=== PATIENT | female | born 1930 | race Caucasian/White ===

== ENCOUNTER 2019-07-07 19:09 | Inpatient (IN) | payer MEDICARE, OTHER ==
[~2019-07-07] VITALS: Ht 144.8 cm; Wt 38.5 kg
[~2019-07-07 19:09] MED LIST: ALLO300T PO; CYAN-27 PO; GLIP10TA13 PO; LOVA40TA2 PO; OMEP-110 PO; PIOG45TA4 PO
[2019-07-07] MEDS ORDERED: SODIUM CHLORIDE 0.9% 1,000 ML IV ONE (19:46)
--- NOTE | 2019-07-07 19:53 | NUR ---
Assumed care of patient. Per family, patient has been mostly sleeping x2 days. Decreased appetite. Family reports confusion. A&Ox4 in ED, but lethargic and weak. Place don NIBP, pulse ox and surveillance system monitor. Will continue to monitor.
[2019-07-07] MEDS ORDERED: SODIUM CHLORIDE FLUSH 10ML SYR IVF ONE ×2 (20:00→21:30)
[2019-07-07 20:32] LABS: BASOPHILS # (AUTO) 0.01 x10^3/uL (0-0.1); BASOPHILS % (AUTO) 0 % (0-1); EOSINOPHILS % (AUTO) 0 % (1-7); LYMPHOCYTES # (AUTO) 0.53 x10^3/uL (1-3.4); LYMPHOCYTES % (AUTO) 4 % (22-44); MD NO; MEAN CORPUSCULAR HEMOGLOBIN 34.3 pg (27.0-34.8); MEAN CORPUSCULAR HGB CONC 32.1 g/dL (32.4-35.8); MEAN CORPUSCULAR VOLUME 106.6 fL (80-100); MEAN PLATELET VOLUME 7.9 fL (7.4-10.4); MONOCYTES # (AUTO) 0.61 x10^3/uL (0.2-0.8); MONOCYTES % (AUTO) 5 % (2-9); NEUTROPHILS # (AUTO) 12.18 x10^3/uL (1.8-6.8); NEUTROPHILS % (AUTO) 91 % (42-75); PLATELET COUNT 200 x10^3/uL (130-400); RED BLOOD COUNT 2.58 x10^6/uL (3.82-5.3); RED CELL DISTRIBUTION WIDTH 17.3 % (9.6-15.2)
[2019-07-07 20:41] LABS: ALANINE AMINOTRANSFERASE 18 U/L (12-78); ALBUMIN 3.3 g/dL (3.4-5.0); ANION GAP 7 mmol/L (5-15); CALCIUM 9.6 mg/dL (8.5-10.1); CHLORIDE 116 mmol/L (98-107); CREATININE 2.17 mg/dL (0.55-1.02)
--- NOTE | 2019-07-07 20:41 | NUR ---
UA sent tp lab. Patient cleaned and repositioned for comfort.
[2019-07-07 20:46] LABS: ALKALINE PHOSPHATASE 63 U/L (45-117); BILIRUBIN,TOTAL 0.3 mg/dL (0.2-1.0); T4 (THYROXINE) 7.9 mcg/dL (4.8-13.9); TOTAL PROTEIN 7.4 g/dL (6.4-8.2); TROPONIN I 0.076 ng/mL (0.000-0.045)
[2019-07-07 21:02] LABS: MICROSCOPIC AUTO
[2019-07-07 21:03] LABS: CULTURE INDICATED? YES
[2019-07-07] MEDS ORDERED: INSULIN SINGLE DOSE, ER SQ-INSULIN ONE (21:10)
[2019-07-07] MEDS ORDERED: CALCIUM GLUCONATE 4.6 MEQ/10 ML ONE (21:10)
[2019-07-07] MEDS ORDERED: CHOL100015 PO (21:18)
[2019-07-07] MEDS ORDERED: LISI40TA PO (21:18)
[2019-07-07] MEDS ORDERED: FERR324T5 PO (21:18)
[2019-07-07] MEDS ORDERED: GLIP10TA13 PO (21:18)
[2019-07-07] MEDS ORDERED: ASPI-496 PO (21:18)
[2019-07-07] MEDS ORDERED: CALCIUM GLUCONATE 4.6 MEQ/10 ML IVPush ONE (21:30)
[2019-07-07] MEDS ORDERED: INSULIN REGULAR 100 UNITS/ML, 3ML VIAL IVPush ONE (21:30)
[2019-07-07] MEDS ORDERED: DEXTROSE 50%, 50ML SYRINGE IVPush ONE (21:30)
[2019-07-07] MEDS ORDERED: CEFTRIAXONE PMX 1GM/50ML 50 ML ONE (21:34)
--- NOTE | 2019-07-07 21:40 | NUR ---
Lab at bedside drawing blood cultures.
[2019-07-07] MEDS ORDERED: CEFTRIAXONE PMX 1GM/50ML 50 ML IVPB ONE (22:00)
[2019-07-07] MEDS ORDERED: SODIUM CHLORIDE FLUSH 10ML SYR IVF PRN (22:30)
[2019-07-07 23:02] VITALS: BP 137/67
[2019-07-07] MEDS ORDERED: DOCUSATE 100 MG CAPSULE PO PRN (23:30)
[2019-07-07] MEDS ORDERED: ACETAMINOPHEN 325 MG TABLET PO PRN (23:30)
[2019-07-07] MEDS ORDERED: DOXYCYCLINE 100 MG in DEXTROSE 5% 250 ML IV SCH (23:30)
[2019-07-07] MEDS ORDERED: HEPARIN 5,000 UNITS/ML, 1ML SQ SCH (23:30)
[2019-07-07] MEDS ORDERED: ONDANSETRON ODT 4 MG PO PRN (23:30)
[2019-07-08] MEDS ORDERED: SODIUM CHLORIDE 0.9% 1,000ML IVBOLUS ONE
[2019-07-08] MEDS ORDERED: SODIUM POLYSTYRENE SULFONATE ORAL SUSP PO ONE
[2019-07-08 00:20] LABS: CHLORIDE,URINE RANDOM 76 mmol/L; POTASSIUM,URINE RANDOM 30 mmol/L; SODIUM,URINE RANDOM 77 mmol/L
[2019-07-08] MEDS ORDERED: HEPARIN 5,000 UNITS/ML, 1ML ONE (00:46)
[2019-07-08 01:03] VITALS: BP 122/69
[2019-07-08 01:13] LABS: BASOPHILS # (AUTO) 0.02 x10^3/uL (0-0.1); BASOPHILS % (AUTO) 0 % (0-1); EOSINOPHILS # (AUTO) 0.02 x10^3/uL (0-0.4); EOSINOPHILS % (AUTO) 0 % (1-7); LYMPHOCYTES # (AUTO) 1.13 x10^3/uL (1-3.4); LYMPHOCYTES % (AUTO) 9 % (22-44); MD NO; MEAN CORPUSCULAR HEMOGLOBIN 34.2 pg (27.0-34.8); MEAN CORPUSCULAR HGB CONC 32.1 g/dL (32.4-35.8); MEAN CORPUSCULAR VOLUME 106.4 fL (80-100); MEAN PLATELET VOLUME 7.7 fL (7.4-10.4); MONOCYTES % (AUTO) 7 % (2-9); NEUTROPHILS # (AUTO) 10.76 x10^3/uL (1.8-6.8); NEUTROPHILS % (AUTO) 84 % (42-75); PLATELET COUNT 194 x10^3/uL (130-400); RED BLOOD COUNT 2.55 x10^6/uL (3.82-5.3); RED CELL DISTRIBUTION WIDTH 16.7 % (9.6-15.2)
[2019-07-08 01:24] LABS: ANION GAP 7 mmol/L (5-15); CHLORIDE 120 mmol/L (98-107); CREATININE 1.93 mg/dL (0.55-1.02)
[2019-07-08 01:28] LABS: TROPONIN I 0.097 ng/mL (0.000-0.045)
[2019-07-08] MEDS: SODIUM CHLORIDE 0.9% 1,000 ML IV SCH ×3 (02:00→16:39)
[2019-07-08 02:04] LABS: FIO2 RA %
[2019-07-08] MEDS ORDERED: SODIUM BICARBONATE 1 MEQ/ML, 50ML VIAL IVPush ONE (02:30)
[2019-07-08 07:02] LABS: BASOPHILS # (AUTO) 0.03 x10^3/uL (0-0.1); BASOPHILS % (AUTO) 0 % (0-1); EOSINOPHILS # (AUTO) 0.08 x10^3/uL (0-0.4); EOSINOPHILS % (AUTO) 1 % (1-7); LYMPHOCYTES % (AUTO) 9 % (22-44); MD NO; MEAN CORPUSCULAR HEMOGLOBIN 33.4 pg (27.0-34.8); MEAN CORPUSCULAR HGB CONC 31.7 g/dL (32.4-35.8); MEAN CORPUSCULAR VOLUME 105.2 fL (80-100); MEAN PLATELET VOLUME 7.7 fL (7.4-10.4); MONOCYTES # (AUTO) 0.73 x10^3/uL (0.2-0.8); MONOCYTES % (AUTO) 6 % (2-9); NEUTROPHILS # (AUTO) 9.64 x10^3/uL (1.8-6.8); NEUTROPHILS % (AUTO) 84 % (42-75); PLATELET COUNT 197 x10^3/uL (130-400); RED BLOOD COUNT 2.42 x10^6/uL (3.82-5.3); RED CELL DISTRIBUTION WIDTH 16.6 % (9.6-15.2)
[2019-07-08 07:14] LABS: ANION GAP 6 mmol/L (5-15); ANION GAP 8 mmol/L (5-15); CALCIUM 9.2 mg/dL (8.5-10.1); CALCIUM 9.3 mg/dL (8.5-10.1); CHLORIDE 122 mmol/L (98-107); CHLORIDE 124 mmol/L (98-107); CREATININE 1.89 mg/dL (0.55-1.02)
[2019-07-08 07:18] LABS: TROPONIN I 0.093 ng/mL (0.000-0.045)
[2019-07-08] MEDS: INSULIN LISPRO 100 UNITS/ML, PEN SQ-INSULIN SCH ×5 (07:21→20:54)
[2019-07-08 07:22] LABS: % IRON SATURATION 17 % (20-55); ALANINE AMINOTRANSFERASE 18 U/L (12-78); ALKALINE PHOSPHATASE 55 U/L (45-117); BILIRUBIN,TOTAL 0.2 mg/dL (0.2-1.0); CREATININE 1.88 mg/dL (0.55-1.02); IRON LEVEL 37 mcg/dL (50-170); TOTAL IRON BINDING CAPACITY 223 mcg/dL (250-450); TOTAL PROTEIN 6.6 g/dL (6.4-8.2); TRANSFERRIN 175 mg/dL (200-360)
[2019-07-08 07:30] VITALS: BP 124/80
[2019-07-08] MEDS ORDERED: CYANOCOBALAMIN 1,000 MCG TABLET PO SCH (09:00)
[2019-07-08 12:47] VITALS: BP 125/63
[2019-07-08 12:50] VITALS: BP 118/67
[2019-07-08 16:31] LABS: ANION GAP 6 mmol/L (5-15); CALCIUM 8.7 mg/dL (8.5-10.1); CHLORIDE 119 mmol/L (98-107); CREATININE 1.75 mg/dL (0.55-1.02)
[2019-07-08 18:45] VITALS: BP 113/58
[2019-07-08] MEDS: LOVASTATIN 40 MG TABLET PO SCH (20:53)
[2019-07-08] MEDS: CEFTRIAXONE PMX 1GM/50ML 50 ML IV SCH (20:54)
[2019-07-09 00:51] VITALS: BP 131/65
[2019-07-09] MEDS: SODIUM CHLORIDE 0.9% 1,000 ML IV SCH (01:24)
[2019-07-09 05:27] LABS: CHLORIDE 121 mmol/L (98-107)
[2019-07-09 05:31] LABS: ANION GAP 7 mmol/L (5-15); CREATININE 1.48 mg/dL (0.55-1.02)
[2019-07-09 06:39] VITALS: BP 145/71
[2019-07-09] MEDS ORDERED: FUROSEMIDE 20 MG/2 ML IV ONE (07:00)
[2019-07-09] MEDS: INSULIN LISPRO 100 UNITS/ML, PEN SQ-INSULIN SCH ×4 (07:00→21:00)
[2019-07-09 13:44] VITALS: BP 132/74
[2019-07-09 18:58] VITALS: BP 124/68
[2019-07-09] MEDS: LOVASTATIN 40 MG TABLET PO SCH (21:12)
[2019-07-09] MEDS: CEFTRIAXONE PMX 1GM/50ML 50 ML IV SCH (21:12)
[2019-07-10 00:32] VITALS: BP 126/77
[2019-07-10 06:35] LABS: ANION GAP 7 mmol/L (5-15); CALCIUM 8.3 mg/dL (8.5-10.1); CHLORIDE 114 mmol/L (98-107); CREATININE 1.44 mg/dL (0.55-1.02)
[2019-07-10] MEDS: HEPARIN 5,000 UNITS/ML, 1ML SQ SCH ×2 (07:12→16:31)
[2019-07-10 07:38] VITALS: BP 133/74
[2019-07-10] MEDS ORDERED: MAGNESIUM SULFATE PMX 2GM/50ML 50 ML IV ONE (08:00)
[2019-07-10] MEDS: INSULIN LISPRO 100 UNITS/ML, PEN SQ-INSULIN SCH ×3 (08:52→16:31)
[2019-07-10] MEDS ORDERED: CEPH-376 PO (10:30)
[2019-07-10] MEDS: CEPHALEXIN 500 MG CAPSULE PO SCH ×2 (11:39→16:30)
[2019-07-10 13:04] VITALS: BP 123/64
== END 2019-07-10 20:00 | disposition home health service (06) | DRG 871 ==
LOC: ED 21:48 → EDIP 22:24 → 4WST 07-08 00:10
PROVIDERS: ADMIT Family Medicine; ATTEND Family Medicine
DX: A41.9 Sepsis, unspecified organism (principal); N17.0 Acute kidney failure with tubular necrosis; N39.0 Urinary tract infection, site not specified; K44.9 Diaphragmatic hernia without obstruction or gangrene; B96.20 Unspecified Escherichia coli [E. coli] as the cause of diseases classified elsewhere; D53.9 Nutritional anemia, unspecified; E11.22 Type 2 diabetes mellitus with diabetic chronic kidney disease; E11.65 Type 2 diabetes mellitus with hyperglycemia; E78.00 Pure hypercholesterolemia, unspecified; E86.0 Dehydration; E87.5 Hyperkalemia; E87.8 Other disorders of electrolyte and fluid balance, not elsewhere classified; F03.90 Unspecified dementia, unspecified severity, without behavioral disturbance, psychotic disturbance, mood disturbance, and anxiety; I12.9 Hypertensive chronic kidney disease with stage 1 through stage 4 chronic kidney disease, or unspecified chronic kidney disease; N18.9 Chronic kidney disease, unspecified; W06.XXXA Fall from bed, initial encounter; Y93.89 Activity, other specified; Y92.89 Other specified places as the place of occurrence of the external cause; Y99.8 Other external cause status; Z87.11 Personal history of peptic ulcer disease
CPT/HCPCS: 36415; 36600; 70450; 71045; 80048; 80053; 81001; 82088; 82140; 82436; 82533; 82550; 82570; 82607; 82728; 82803; 82962; 83036; 83540; 83550; 83605; 83735; 83880; 84133; 84145; 84244; 84300; 84436; 84443; 84466; 84484; 85025; 87040; 87077; 87086; 87186; 93005; 93306; 96374; 96375; 99291; G0378; J0696; J1644; J1815; J0610; J1940; J3475; J7030

== ENCOUNTER 2019-09-08 21:05 | Inpatient (IN) | payer MEDICARE ==
[~2019-09-08] VITALS: Ht 144.8 cm; Wt 37.1 kg
[~2019-09-08 21:05] MED LIST changes: +ASPI-496 PO; +CEPH-376 PO; +CHOL100015 PO; +FERR324T5 PO; +LISI40TA PO
[2019-09-08 22:53] LABS: BASOPHILS # (AUTO) 0.02 x10^3/uL (0-0.1); BASOPHILS % (AUTO) 0 % (0-1); EOSINOPHILS # (AUTO) 0.02 x10^3/uL (0-0.4); EOSINOPHILS % (AUTO) 0 % (1-7); LYMPHOCYTES # (AUTO) 1.67 x10^3/uL (1-3.4); LYMPHOCYTES % (AUTO) 24 % (22-44); MD NO; MEAN CORPUSCULAR HEMOGLOBIN 32.6 pg (27.0-34.8); MEAN CORPUSCULAR HGB CONC 32.3 g/dL (32.4-35.8); MEAN CORPUSCULAR VOLUME 101.1 fL (80-100); MEAN PLATELET VOLUME 8.8 fL (7.4-10.4); MONOCYTES # (AUTO) 0.74 x10^3/uL (0.2-0.8); MONOCYTES % (AUTO) 11 % (2-9); NEUTROPHILS # (AUTO) 4.45 x10^3/uL (1.8-6.8); NEUTROPHILS % (AUTO) 65 % (42-75); PLATELET COUNT 229 x10^3/uL (130-400); RED BLOOD COUNT 3.32 x10^6/uL (3.82-5.3); RED CELL DISTRIBUTION WIDTH 15.5 % (9.6-15.2)
[2019-09-08 23:04] LABS: ALBUMIN 3.3 g/dL (3.4-5.0); ANION GAP 12 mmol/L (5-15); CALCIUM 10.1 mg/dL (8.5-10.1); CHLORIDE 106 mmol/L (98-107)
[2019-09-08 23:10] LABS: ALANINE AMINOTRANSFERASE 18 U/L (12-78); ALKALINE PHOSPHATASE 99 U/L (45-117); BILIRUBIN,TOTAL 0.3 mg/dL (0.2-1.0); CREATININE 2.11 mg/dL (0.55-1.02); TOTAL PROTEIN 7.9 g/dL (6.4-8.2); TROPONIN I 0.064 ng/mL (0.000-0.045)
[2019-09-08] MEDS ORDERED: SODIUM CHLORIDE 0.9% 1,000 ML IV ONE (23:28)
[2019-09-08] MEDS ORDERED: SODIUM CHLORIDE FLUSH 10ML SYR IVF ONE (23:30)
[2019-09-09] MEDS: LACTATED RINGERS 1,000 ML IV SCH ×2 (00:30→14:20)
[2019-09-09] MEDS ORDERED: ERGOCALCIFEROL 50,000 UNIT CAPSULE PO SCH (00:30)
[2019-09-09] MEDS ORDERED: ENALAPRILAT 1.25 MG/ML, 2ML IVPush PRN (00:30)
[2019-09-09] MEDS ORDERED: DEXTROSE 4 GM TAB.CHEW PO PRN (00:30)
[2019-09-09] MEDS ORDERED: DEXTROSE 50%, 50ML SYRINGE IVPush PRN (00:30)
[2019-09-09] MEDS ORDERED: GLUCAGON 1 MG IM PRN (00:30)
[2019-09-09] MEDS: HEPARIN 5,000 UNITS/ML, 1ML SQ SCH ×3 (00:30→18:23)
[2019-09-09] MEDS ORDERED: ACETAMINOPHEN 325 MG TABLET PO PRN (00:30)
--- NOTE | 2019-09-09 00:30 | NUR ---
UA OBTAINED STRAIGHT CATH. PT TOLERATED WELL.
[2019-09-09 00:50] LABS: MICROSCOPIC INDICATED
[2019-09-09 01:02] LABS: CULTURE INDICATED? NO
--- NOTE | 2019-09-09 01:30 | NUR ---
PT RESTING WITH EYES CLOSED. FAMILY AT BEDSIDE. MONITOR IN PLACE.
[2019-09-09] MEDS ORDERED: HEPARIN 5,000 UNITS/ML, 1ML ONE ×2 (01:49→09:15)
[2019-09-09] MEDS ORDERED: [UNRECOGNIZED DRUG - OTHER] MC SCH (02:00)
--- NOTE | 2019-09-09 02:31 | NUR ---
PT TRANSFERED TO 21 AND PLACED IN HOSPITAL BED. FAMILY AT BEDSIDE. WATER PROVIDED. NO OTHER NEEDS AT THIS TIME.
--- NOTE | 2019-09-09 02:35 | NUR ---
REPORT RECEIVED FROM URBANO EMERSON. PT RESTING ON HOSPITAL BED WITH EYES CLOSED. FAMILY AT BS FOR SUPPORT. MONITORING IN PLACE. CALL LIGHT WITHIN REACH.
--- NOTE | 2019-09-09 03:30 | NUR ---
PT RESTING WITH EYES CLOSED ON HOSPITAL BED. RESPIRATIONS EVEN AND NONLABORED.
--- NOTE | 2019-09-09 04:38 | NUR ---
MATTHEW PLACED FOR PT COMFORT. PT NOW RESTING WITH EYES CLOSED. CALL LIGHT WITHIN REACH, ALL SAFETY MEASURES IN PLACE. MONITORING IN PLACE.
--- NOTE | 2019-09-09 06:52 | NUR ---
REPORT GIVEN TO URBANO JACOME
--- NOTE | 2019-09-09 07:07 | NUR ---
LATE NOTE ENTRY DUE TO PT CARE. Received bedside report from URBANO Morris. All questions answered. Pt asleep on hospital bed on right lateral side. Pt has unlabored respirations with even chest rise and fall. NADN. Bedrails up x 3. Call light within reach. Pt connected to NIBP cuff, continous pulse ox monitor, and second time worker. No needs expressed at this time. Assuming care of pt at this time.
[2019-09-09] MEDS ORDERED: INSULIN LISPRO SINGLE DOSE, ER SQ-INSULIN ONE ×2 (07:30→11:55)
[2019-09-09] MEDS: INSULIN LISPRO 100 UNITS/ML, PEN SQ-INSULIN SCH ×5 (07:34→21:00)
--- NOTE | 2019-09-09 07:47 | NUR ---
LATE NOTE ENTRY DUE TO PT CARE for 726: Obtained FSBG with hospital glucometer. FSBG 401. Provided 15 units Humalog per EMAR. Verified with URBANO Caballero. Ordered BG STAT from lab. Admitting [facility] MD at bedside and aware of FSBG. Pt AOX3, states it is "1999".
[2019-09-09 08:20] LABS: TROPONIN I 0.065 ng/mL (0.000-0.045)
[2019-09-09] MEDS ORDERED: ASPIRIN 81 MG TABLET EC ONE (08:35)
--- NOTE | 2019-09-09 08:43 | NUR ---
Holding pt's food tray at this time due to random glucose.
--- NOTE | 2019-09-09 08:43 | NUR ---
Called [facility] [phone] and requested call back to notify physician of pt's troponin and random glucose labs. Waiting for call back from Dr. Hardy.
--- NOTE | 2019-09-09 08:48 | NUR ---
Dr. Hardy returned call. Updated Dr. Hardy of pt's troponin levele and random glucose from 07. Per Dr. Hardy, "we will recheck the troponin level and you can recheck her finger stick blood glucose in another hour. You can go ahead and feed her (breakfast)."
[2019-09-09] MEDS: ASPIRIN 81 MG TABLET EC PO SCH (09:03)
[2019-09-09] MEDS: ALLOPURINOL 300 MG TABLET PO SCH (09:04)
[2019-09-09] MEDS: SODIUM CHLORIDE FLUSH 10ML SYR IVF SCH ×2 (09:07→22:14)
--- NOTE | 2019-09-09 09:07 | NUR ---
Provided pt medicaitons per EMAR. Assisted with repositioning pt in bed. Assisted pt with morning meal. Pt appreciaitve. NADN. No needs expressed at this time.
--- NOTE | 2019-09-09 09:09 | NUR ---
Pt unable to tell EDRN what home medications are. Pt unable to verify home medications with list of meds in med rec.
[2019-09-09] MEDS: FERROUS SULFATE 325 MG TABLET PO SCH ×2 (09:35→22:13)
--- NOTE | 2019-09-09 12:51 | NUR ---
Called diet office to follow up on lunch tray order. Pending lunch tray at this time.
[2019-09-09 12:53] LABS: TROPONIN I 0.054 ng/mL (0.000-0.045)
--- NOTE | 2019-09-09 13:40 | NUR ---
LATE NOTE ENTRY FOR 1310: Lunch tray provided. Pt appreciative.
--- NOTE | 2019-09-09 14:23 | NUR ---
Repositioned pt on to right lateral side. PIV fluids infusing per EMAR. Pt ate approximately 15% of lunch tray. PT resting with eyes closed and with unlabored respirations and even chest rise and fall. NADN. No needs expressed. Lights turned off per pt request. Call light within reach.
--- NOTE | 2019-09-09 14:34 | NUR ---
Yellow slip sent to pharmacy per EMAR medicaiton request.
--- NOTE | 2019-09-09 15:45 | NUR ---
Provided report to URBANO Thompson. All questions answered. Pt ready to transfer to floor from ED.
--- NOTE | 2019-09-09 16:06 | NUR ---
Pt transfered from ED to floor and left with all personal belongings.
[2019-09-09 16:11] VITALS: BP 156/76
[2019-09-09 18:59] VITALS: BP 151/72
[2019-09-09] MEDS: LOVASTATIN 40 MG TABLET PO SCH (22:13)
[2019-09-10] MEDS: LACTATED RINGERS 1,000 ML IV SCH (03:14)
[2019-09-10] MEDS: HEPARIN 5,000 UNITS/ML, 1ML SQ SCH ×3 (03:14→20:16)
[2019-09-10 03:20] VITALS: BP 159/78
[2019-09-10 06:15] LABS: MEAN CORPUSCULAR HEMOGLOBIN 32.9 pg (27.0-34.8); MEAN CORPUSCULAR HGB CONC 32.6 g/dL (32.4-35.8); MEAN CORPUSCULAR VOLUME 100.8 fL (80-100); RED BLOOD COUNT 2.83 x10^6/uL (3.82-5.3); RED CELL DISTRIBUTION WIDTH 15.9 % (9.6-15.2)
[2019-09-10 06:24] LABS: ANION GAP 9 mmol/L (5-15); CALCIUM 8.7 mg/dL (8.5-10.1); CHLORIDE 107 mmol/L (98-107)
[2019-09-10 06:27] LABS: CREATININE 1.68 mg/dL (0.55-1.02)
[2019-09-10 06:42] VITALS: BP 163/84
[2019-09-10 06:55] LABS: BASOPHILS # (AUTO) 0.03 x10^3/uL (0-0.1); BASOPHILS % (AUTO) 0 % (0-1); EOSINOPHILS # (AUTO) 0.19 x10^3/uL (0-0.4); EOSINOPHILS % (AUTO) 2 % (1-7); LYMPHOCYTES # (AUTO) 2.33 x10^3/uL (1-3.4); LYMPHOCYTES % (AUTO) 31 % (22-44); MD MORPH REVIEW ONLY; MEAN PLATELET VOLUME 8.8 fL (7.4-10.4); MONOCYTES # (AUTO) 0.71 x10^3/uL (0.2-0.8); MONOCYTES % (AUTO) 9 % (2-9); NEUTROPHILS # (AUTO) 4.37 x10^3/uL (1.8-6.8); NEUTROPHILS % (AUTO) 57 % (42-75); PLATELET COUNT 193 x10^3/uL (130-400)
[2019-09-10 06:57] LABS: <PLATELET ESTIMATE> ADEQUATE; <PLT MORPHOLOGY> NORMAL PLT MORPH; ANISOCYTOSIS 1+; OVALOCYTES 1+
[2019-09-10] MEDS: ASPIRIN 81 MG TABLET EC PO SCH (07:58)
[2019-09-10] MEDS: ALLOPURINOL 300 MG TABLET PO SCH (07:58)
[2019-09-10] MEDS: FOLIC ACID 1 MG TABLET PO SCH (07:58)
[2019-09-10] MEDS: FERROUS SULFATE 325 MG TABLET PO SCH ×2 (07:58→20:16)
[2019-09-10] MEDS: INSULIN LISPRO 100 UNITS/ML, PEN SQ-INSULIN SCH ×4 (07:59→20:17)
[2019-09-10] MEDS: SODIUM CHLORIDE FLUSH 10ML SYR IVF SCH ×2 (08:52→20:18)
[2019-09-10] MEDS ORDERED: SODIUM PHOSPHATE 30 MMOL in SODIUM CHLORIDE 0.9% 500 ML IV ONE (11:30)
[2019-09-10 12:40] VITALS: BP 152/76
[2019-09-10 19:44] VITALS: BP 126/67
[2019-09-10] MEDS: LOVASTATIN 40 MG TABLET PO SCH (20:16)
[2019-09-11 01:30] VITALS: BP 132/72
[2019-09-11] MEDS: LACTATED RINGERS 1,000 ML IV SCH (01:56)
[2019-09-11] MEDS: HEPARIN 5,000 UNITS/ML, 1ML SQ SCH ×3 (04:18→20:34)
[2019-09-11 05:56] LABS: ALBUMIN 2.2 g/dL (3.4-5.0); ANION GAP 11 mmol/L (5-15); CALCIUM 8.2 mg/dL (8.5-10.1); CHLORIDE 108 mmol/L (98-107)
[2019-09-11 05:58] LABS: CREATININE 1.31 mg/dL (0.55-1.02)
[2019-09-11 06:02] LABS: BASOPHILS # (AUTO) 0.02 x10^3/uL (0-0.1); BASOPHILS % (AUTO) 0 % (0-1); EOSINOPHILS # (AUTO) 0.16 x10^3/uL (0-0.4); EOSINOPHILS % (AUTO) 3 % (1-7); LYMPHOCYTES # (AUTO) 2.24 x10^3/uL (1-3.4); LYMPHOCYTES % (AUTO) 34 % (22-44); MD NO; MEAN CORPUSCULAR HEMOGLOBIN 32.7 pg (27.0-34.8); MEAN CORPUSCULAR HGB CONC 32.6 g/dL (32.4-35.8); MEAN CORPUSCULAR VOLUME 100.2 fL (80-100); MEAN PLATELET VOLUME 8.4 fL (7.4-10.4); MONOCYTES # (AUTO) 0.59 x10^3/uL (0.2-0.8); MONOCYTES % (AUTO) 9 % (2-9); NEUTROPHILS # (AUTO) 3.52 x10^3/uL (1.8-6.8); NEUTROPHILS % (AUTO) 54 % (42-75); PLATELET COUNT 192 x10^3/uL (130-400); RED BLOOD COUNT 2.47 x10^6/uL (3.82-5.3); RED CELL DISTRIBUTION WIDTH 15.3 % (9.6-15.2)
[2019-09-11] MEDS ORDERED: POTASSIUM CHLORIDE 20 MEQ in SODIUM CHLORIDE 0.9% 250 ML IV ONE (07:00)
[2019-09-11] MEDS: FERROUS SULFATE 325 MG TABLET PO SCH ×2 (08:53→20:34)
[2019-09-11] MEDS: ASPIRIN 81 MG TABLET EC PO SCH (08:53)
[2019-09-11] MEDS: SODIUM CHLORIDE FLUSH 10ML SYR IVF SCH ×2 (08:53→20:35)
[2019-09-11] MEDS: INSULIN LISPRO 100 UNITS/ML, PEN SQ-INSULIN SCH ×4 (08:53→20:35)
[2019-09-11] MEDS: FOLIC ACID 1 MG TABLET PO SCH (08:53)
[2019-09-11 09:00] VITALS: BP 169/92
[2019-09-11] MEDS ORDERED: ALLOPURINOL 100 MG TABLET PO SCH (09:00)
[2019-09-11 15:12] VITALS: BP 120/74
[2019-09-11 18:50] VITALS: BP 113/68
[2019-09-11] MEDS: LOVASTATIN 40 MG TABLET PO SCH (20:35)
[2019-09-12 00:32] VITALS: BP 139/78
[2019-09-12] MEDS: HEPARIN 5,000 UNITS/ML, 1ML SQ SCH ×3 (05:20→20:58)
[2019-09-12 06:26] LABS: BASOPHILS # (AUTO) 0.02 x10^3/uL (0-0.1); BASOPHILS % (AUTO) 0 % (0-1); EOSINOPHILS % (AUTO) 3 % (1-7); LYMPHOCYTES % (AUTO) 30 % (22-44); MD NO; MEAN CORPUSCULAR HEMOGLOBIN 32.8 pg (27.0-34.8); MEAN CORPUSCULAR HGB CONC 32.9 g/dL (32.4-35.8); MEAN CORPUSCULAR VOLUME 99.7 fL (80-100); MEAN PLATELET VOLUME 8.4 fL (7.4-10.4); MONOCYTES # (AUTO) 0.77 x10^3/uL (0.2-0.8); MONOCYTES % (AUTO) 10 % (2-9); NEUTROPHILS # (AUTO) 4.35 x10^3/uL (1.8-6.8); NEUTROPHILS % (AUTO) 57 % (42-75); PLATELET COUNT 222 x10^3/uL (130-400); RED BLOOD COUNT 2.82 x10^6/uL (3.82-5.3); RED CELL DISTRIBUTION WIDTH 15.2 % (9.6-15.2)
[2019-09-12 06:37] LABS: ALBUMIN 2.4 g/dL (3.4-5.0); ANION GAP 9 mmol/L (5-15); CALCIUM 8.2 mg/dL (8.5-10.1); CHLORIDE 107 mmol/L (98-107)
[2019-09-12 06:38] LABS: CREATININE 1.35 mg/dL (0.55-1.02)
[2019-09-12 06:53] VITALS: BP 175/73
[2019-09-12] MEDS ORDERED: hydrALAzine 20 MG/ML, 1ML IV PRN (07:30)
[2019-09-12] MEDS: FOLIC ACID 1 MG TABLET PO SCH (09:06)
[2019-09-12] MEDS: ASPIRIN 81 MG TABLET EC PO SCH (09:06)
[2019-09-12] MEDS: NEUTRA PHOS K 250 MG TABLET PO SCH ×2 (09:06→20:58)
[2019-09-12] MEDS: FERROUS SULFATE 325 MG TABLET PO SCH ×2 (09:06→20:58)
[2019-09-12] MEDS: INSULIN LISPRO 100 UNITS/ML, PEN SQ-INSULIN SCH ×4 (09:06→21:00)
[2019-09-12] MEDS: SODIUM CHLORIDE FLUSH 10ML SYR IVF SCH ×2 (09:07→20:59)
[2019-09-12 13:36] VITALS: BP 148/80
[2019-09-12 19:11] VITALS: BP 149/80
[2019-09-12] MEDS: LOVASTATIN 40 MG TABLET PO SCH (20:58)
[2019-09-13 01:04] VITALS: BP 152/79
[2019-09-13] MEDS: HEPARIN 5,000 UNITS/ML, 1ML SQ SCH ×3 (05:56→22:33)
[2019-09-13] MEDS: INSULIN LISPRO 100 UNITS/ML, PEN SQ-INSULIN SCH ×2 (07:03→11:00)
[2019-09-13] MEDS: FERROUS SULFATE 325 MG TABLET PO SCH ×4 (07:56→22:37)
[2019-09-13] MEDS: FOLIC ACID 1 MG TABLET PO SCH ×2 (07:56→08:03)
[2019-09-13] MEDS: ASPIRIN 81 MG TABLET EC PO SCH ×2 (07:56→08:03)
[2019-09-13] MEDS: NEUTRA PHOS K 250 MG TABLET PO SCH ×4 (07:56→22:37)
[2019-09-13] MEDS: SODIUM CHLORIDE FLUSH 10ML SYR IVF SCH (07:56)
[2019-09-13 09:15] VITALS: BP 134/80
[2019-09-13] MEDS: SODIUM CHLORIDE 0.9% 1,000 ML IV SCH (11:40)
[2019-09-13] MEDS: PIOGLITAZONE 15 MG TABLET PO SCH (11:40)
[2019-09-13 14:53] VITALS: BP 134/78
[2019-09-13] MEDS ORDERED: SODIUM CHLORIDE 0.9%, 250ML IVBOLUS ONE (15:30)
[2019-09-13 19:12] VITALS: BP 158/74
[2019-09-13] MEDS: LOVASTATIN 40 MG TABLET PO SCH ×2 (22:33→22:37)
[2019-09-14 00:13] VITALS: BP 137/69
[2019-09-14] MEDS: SODIUM CHLORIDE 0.9% 1,000 ML IV SCH ×2 (00:16→14:00)
[2019-09-14] MEDS: HEPARIN 5,000 UNITS/ML, 1ML SQ SCH ×2 (05:01→12:49)
[2019-09-14] MEDS: PIOGLITAZONE 15 MG TABLET PO SCH (07:27)
[2019-09-14] MEDS: FOLIC ACID 1 MG TABLET PO SCH (07:28)
[2019-09-14] MEDS: FERROUS SULFATE 325 MG TABLET PO SCH (07:28)
[2019-09-14] MEDS: ASPIRIN 81 MG TABLET EC PO SCH (07:28)
[2019-09-14] MEDS: NEUTRA PHOS K 250 MG TABLET PO SCH (07:28)
[2019-09-14 09:38] VITALS: BP 165/81
== END 2019-09-14 15:47 | disposition hospice, home (50) | DRG 682 ==
LOC: ED 23:59 → EDIP 09-09 00:21 → 4EST 09-09 16:04
PROVIDERS: ADMIT Family Medicine; ATTEND Family Medicine
PROC: 0T9B70Z Drainage of Bladder with Drainage Device, Via Natural or Artificial Opening (ICD-10-PCS; principal; 2019-09-09)
DX: N17.9 Acute kidney failure, unspecified (principal); E11.00 Type 2 diabetes mellitus with hyperosmolarity without nonketotic hyperglycemic-hyperosmolar coma (NKHHC); G04.90 Encephalitis and encephalomyelitis, unspecified; N39.0 Urinary tract infection, site not specified; Z68.1 Body mass index [BMI] 19.9 or less, adult; E87.2 Acidosis; E86.0 Dehydration; R62.7 Adult failure to thrive; E11.22 Type 2 diabetes mellitus with diabetic chronic kidney disease; D53.9 Nutritional anemia, unspecified; D75.89 Other specified diseases of blood and blood-forming organs; E11.65 Type 2 diabetes mellitus with hyperglycemia; E78.00 Pure hypercholesterolemia, unspecified; E83.39 Other disorders of phosphorus metabolism; F02.80 Dementia in other diseases classified elsewhere, unspecified severity, without behavioral disturbance, psychotic disturbance, mood disturbance, and anxiety; G20 Parkinson's disease; I12.9 Hypertensive chronic kidney disease with stage 1 through stage 4 chronic kidney disease, or unspecified chronic kidney disease; N18.9 Chronic kidney disease, unspecified; R32 Unspecified urinary incontinence; Z51.5 Encounter for palliative care; Z66 Do not resuscitate; I44.0 Atrioventricular block, first degree; I35.0 Nonrheumatic aortic (valve) stenosis; D53.1 Other megaloblastic anemias, not elsewhere classified; M10.9 Gout, unspecified; E78.5 Hyperlipidemia, unspecified; Z79.4 Long term (current) use of insulin; Z79.899 Other long term (current) drug therapy
CPT/HCPCS: 36415; 71045; 80048; 80053; 80069; 81001; 82947; 82962; 83735; 84100; 84443; 84484; 85025; 93005; 99285; G0378; J1644; J3480; J1815; J7030; J7040; J7050; J7120